=== PATIENT | female | born 1940 | race Caucasian/White ===

== ENCOUNTER 2021-11-12 19:03 | Emergency (ER) | payer MEDICARE ==
[~2021-11-12] VITALS: Ht 157.5 cm; Wt 87.5 kg
[2021-11-12 20:01] LABS: ABSOLUTE BASOPHILS 0.1 thou/uL (0.0-0.2); ABSOLUTE EOSINOPHILS 0.2 thou/uL (0.0-0.7); ABSOLUTE LYMPHOCYTES 2.3 thou/uL (0.8-5.3); ABSOLUTE MONOCYTES 0.7 thou/uL (0.0-1.2); ABSOLUTE NEUTROPHILS 5.6 thou/uL (1.6-8.1); BASOPHILS 0.8 %; EOSINOPHILS 2.1 %; HEMATOCRIT 42.9 % (37.0-47.0); HEMOGLOBIN 14.5 gm/dL (12.0-15.0); LYMPHOCYTES 25.7 %; MCH 31.8 pg (26.0-34.0); MCHC 33.7 g/dL (28.0-37.0); MCV 94.5 fL (80.0-100.0); MONOCYTES 7.4 %; MPV 7.8 fl. (7.2-11.1); NUCLEATED RBCS 0 /100WBC; PLATELET COUNT* 270 thou/uL (150-400); RBC 4.54 mil/uL (4.20-5.00); RDW-CV 13.2 % (10.5-14.5); WBC 8.8 thou/uL (4.0-11.0)
[2021-11-12 20:09] LABS: CALCIUM 8.7 mg/dL (8.5-10.1); CREATININE 0.8 mg/dL (0.6-1.3); POTASSIUM 3.1 mmol/L (3.5-5.1)
[2021-11-12 20:11] LABS: APTT 27.2 Seconds (25.0-31.3); PROTIME 10.3 Seconds (9.20-11.50)
[2021-11-12 20:13] LABS: ALBUMIN 3.8 g/dL (3.4-5.0); MAGNESIUM 2.2 mg/dL (1.8-2.4); TOTAL BILIRUBIN 0.4 mg/dL (<0.1-1.0); TOTAL PROTEIN 7.5 g/dL (6.4-8.2)
[2021-11-12] MEDS ORDERED: CEPHALEXIN500 MG PO (22:06)
[2021-11-12] MEDS ORDERED: HYDROCODON-ACE1 EAC8 PO (22:07)
[2021-11-12 22:16] VITALS: BP 135/89
--- NOTE | 2021-11-13 10:40 | EKG ---
[place] [address] ELECTROCARDIOGRAM REPORT Name: KILORACHAEL Room: [facility]#: [id number] Admission: 11/12/21 Attend Phys: Discharge: 11/12/21 Date of : 38 Date of Service: 11/12/211943 Report #: [id number] THIS REPORT FOR: //name// [facility] ED Test Date: 2021-11-12 Test Time: 19:44:29 Pat Name: RACHAEL BOATENG Department: Room: Gender: F [employer] Department Supervisor: MS : 1940 Requested By: Talia Montelongo Order Number: [id number] MD: Solo Wolfe Measurements Intervals Davin Rate: 87 P: 43 AR: 198 QRS: -63 QRSD: 126 T: 77 QT: 385 QTc: 463 Interpretive Statements Sinus rhythm Left bundle branch block No previous ECG available for comparison Electronically Signed On 11-13-2021 10:40:05 [employer] by Solo Wolfe [email or web address] <ELECTRONICALLY SIGNED> By: Filomena Wolfe MD, [facility] 11/13/21 1040 43 43 Filomena Wolfe MD, [facility] /EPI
== END 2021-11-12 22:16 | disposition home or self-care (01) ==
LOC: M.ERS 19:03
PROVIDERS: Emergency Medicine; Physician Assistant
DX: S01.81XA Laceration without foreign body of other part of head, initial encounter (principal); S02.2XXA Fracture of nasal bones, initial encounter for closed fracture; I10 Essential (primary) hypertension; M19.90 Unspecified osteoarthritis, unspecified site; W19.XXXA Unspecified fall, initial encounter; Y93.89 Activity, other specified; Y92.89 Other specified places as the place of occurrence of the external cause; Y99.8 Other external cause status